=== PATIENT | male | born 1955 | race Caucasian/White ===

== ENCOUNTER 2018-08-13 08:26 | Day surgery (SDC) | payer BC, MEDICARE ==
[~2018-08-13] VITALS: Ht 177.8 cm; Wt 100.0 kg
[2018-08-13] MEDS ORDERED: SODIUM CHLORIDE 0.9% 1,000 ML IV ONE (09:18)
[2018-08-13] MEDS ORDERED: ISOS30TA8 PO (09:25)
[2018-08-13] MEDS ORDERED: ASPI-496 PO (09:25)
[2018-08-13] MEDS ORDERED: SUMA25TA3 PO (09:25)
[2018-08-13] MEDS ORDERED: OMEP40CA6 PO (09:25)
[2018-08-13] MEDS ORDERED: ONDA4TAB7 PO (09:25)
[2018-08-13] MEDS ORDERED: ATOR40TA78 PO (09:25)
[2018-08-13] MEDS ORDERED: METO25TA35 PO (09:25)
[2018-08-13 09:34] LABS: BASOPHILS # (AUTO) 0.03 x10^3/uL (0-0.1); BASOPHILS % (AUTO) 0 % (0-1); EOSINOPHILS # (AUTO) 0.03 x10^3/uL (0-0.4); EOSINOPHILS % (AUTO) 0 % (1-7); LYMPHOCYTES # (AUTO) 1.44 x10^3/uL (1-3.4); LYMPHOCYTES % (AUTO) 9 % (22-44); MD NO; MEAN CORPUSCULAR HEMOGLOBIN 30.9 pg (27.5-34.5); MEAN CORPUSCULAR HGB CONC 33.2 g/dL (33.2-36.2); MEAN PLATELET VOLUME 8.8 fL (7.4-10.4); MONOCYTES # (AUTO) 0.31 x10^3/uL (0.2-0.8); MONOCYTES % (AUTO) 2 % (2-9); NEUTROPHILS # (AUTO) 14.06 x10^3/uL (1.8-6.8); NEUTROPHILS % (AUTO) 89 % (42-75); PLATELET COUNT 294 x10^3/uL (130-400); RED BLOOD COUNT 4.86 x10^6/uL (4.38-5.82); RED CELL DISTRIBUTION WIDTH 14.4 % (9.4-14.8)
[2018-08-13 09:45] LABS: ALANINE AMINOTRANSFERASE 56 U/L (12-78); ALBUMIN 3.8 g/dL (3.4-5.0); ANION GAP 8 mmol/L (5-15); CALCIUM 10.2 mg/dL (8.5-10.1); CHLORIDE 106 mmol/L (98-107); CREATININE 1.17 mg/dL (0.7-1.3)
[2018-08-13 09:48] LABS: ALKALINE PHOSPHATASE 71 U/L (45-117); BILIRUBIN,TOTAL 0.5 mg/dL (0.2-1.0); TOTAL PROTEIN 7.3 g/dL (6.4-8.2)
[2018-08-13] MEDS ORDERED: HEPARIN 1,000 UNITS/ML, 10ML ONE (09:55)
[2018-08-13] MEDS ORDERED: MIDAZOLAM 1 MG/ML, 2ML ONE (09:55)
[2018-08-13] MEDS ORDERED: VERAPAMIL 2.5 MG/ML, 2ML ONE (09:55)
[2018-08-13] MEDS ORDERED: LIDOCAINE-MPF 1%, 5ML ONE (09:55)
[2018-08-13] MEDS ORDERED: FENTANYL PF 100 MCG/2ML ONE (09:55)
[2018-08-13] MEDS ORDERED: TICAGRELOR 90 MG TABLET ONE (10:28)
[2018-08-13] MEDS ORDERED: BIVALIRUDIN 250 MG ONE (10:29)
[2018-08-13 12:45] LABS: CHOL/HDL RATIO 2.8; LDL/HDL RATIO 1.2 (0.5-3.0)
[2018-08-13] MEDS ORDERED: SODIUM CHLORIDE 0.9% 1,000 ML IV SCH (13:48)
== END 2018-08-13 15:20 | disposition home or self-care (01) ==
LOC: CACL 08:26
PROVIDERS: ATTEND Internal Medicine Cardiovascular Disease
DX: I25.82 Chronic total occlusion of coronary artery (principal); E78.2 Mixed hyperlipidemia; F17.210 Nicotine dependence, cigarettes, uncomplicated; I20.8 Other forms of angina pectoris; Z79.82 Long term (current) use of aspirin; Z88.7 Allergy status to serum and vaccine; Z87.891 Personal history of nicotine dependence; Z72.89 Other problems related to lifestyle; Z79.899 Other long term (current) drug therapy
CPT/HCPCS: 36415; 80053; 80061; 85025; 93306; 93458; 93880; 93970; 99156; C1769; C1894; J1644; Q9967; J0583; J2250; J3010

== ENCOUNTER 2018-08-24 04:27 | Inpatient (IN) | payer BC ==
[2018-08-21 13:04] LABS: MICROSCOPIC AUTO
[2018-08-21 13:09] LABS: BASOPHILS # (AUTO) 0.05 x10^3/uL (0-0.1); BASOPHILS % (AUTO) 1 % (0-1); EOSINOPHILS # (AUTO) 0.41 x10^3/uL (0-0.4); EOSINOPHILS % (AUTO) 4 % (1-7); LYMPHOCYTES # (AUTO) 1.82 x10^3/uL (1-3.4); LYMPHOCYTES % (AUTO) 19 % (22-44); MD NO; MEAN CORPUSCULAR HEMOGLOBIN 31.9 pg (27.5-34.5); MEAN CORPUSCULAR HGB CONC 34.1 g/dL (33.2-36.2); MEAN CORPUSCULAR VOLUME 93.4 fL (81-97); MEAN PLATELET VOLUME 8.8 fL (7.4-10.4); MONOCYTES # (AUTO) 0.55 x10^3/uL (0.2-0.8); MONOCYTES % (AUTO) 6 % (2-9); NEUTROPHILS # (AUTO) 6.85 x10^3/uL (1.8-6.8); NEUTROPHILS % (AUTO) 71 % (42-75); PLATELET COUNT 303 x10^3/uL (130-400); RED BLOOD COUNT 4.93 x10^6/uL (4.38-5.82); RED CELL DISTRIBUTION WIDTH 14.4 % (9.4-14.8)
[2018-08-21 13:16] LABS: INTERNATIONAL NORMALIZED RATIO 0.96 (0.93-1.1)
[2018-08-21 13:17] LABS: ALANINE AMINOTRANSFERASE 84 U/L (12-78); ALBUMIN 3.8 g/dL (3.4-5.0); ANION GAP 6 mmol/L (5-15); CALCIUM 9.6 mg/dL (8.5-10.1); CHLORIDE 107 mmol/L (98-107); CREATININE 1.12 mg/dL (0.7-1.3)
[2018-08-21 13:19] LABS: ALKALINE PHOSPHATASE 92 U/L (45-117); BILIRUBIN,TOTAL 0.6 mg/dL (0.2-1.0); TOTAL PROTEIN 7.6 g/dL (6.4-8.2)
[~2018-08-24] VITALS: Ht 177.8 cm; Wt 101.5 kg
[~2018-08-24 04:27] MED LIST: ASPI-496 PO; ATOR40TA78 PO; ISOS30TA8 PO; METO25TA35 PO; OMEP40CA6 PO; ONDA4TAB7 PO; SUMA25TA3 PO
[2018-08-24 04:40] VITALS: BP_SYST 131; BP_SYST 134; BP_DIAS 77; BP_DIAS 81
[2018-08-24] MEDS ORDERED: INSULIN LISPRO 100 UNITS/ML, PEN SQ-INSULIN SCH (05:00)
[2018-08-24] MEDS ORDERED: CHLORHEXIDINE 15 ML UDC MM SCH (05:00)
[2018-08-24] MEDS ORDERED: METOPROLOL TARTRATE 25 MG TABLET PO ONE (05:00)
[2018-08-24] MEDS: MUPIROCIN OINT 2%, 22GM TP SCH ×2 (05:33→21:00)
[2018-08-24] MEDS: SODIUM CHLORIDE FLUSH 10ML SYR IVF SCH ×3 (05:35→21:21)
[2018-08-24] MEDS ORDERED: PAPAVERINE 30 MG/ML, 2ML ONE (06:08)
[2018-08-24] MEDS ORDERED: HEPARIN 1,000 UNITS/ML, 10ML ONE (06:09)
[2018-08-24] MEDS ORDERED: FENTANYL PF 250 MCG/5ML ONE ×5 (07:05→09:54)
[2018-08-24] MEDS ORDERED: MIDAZOLAM 10MG/2 ML ONE (07:05)
[2018-08-24] MEDS ORDERED: AMINOCAPROIC ACID 250 MG/ML, 20ML ONE ×2 (07:07→07:08)
[2018-08-24] MEDS ORDERED: ROCURONIUM 10MG/ML,5ML ONE ×2 (07:08)
[2018-08-24] MEDS ORDERED: EPINEPHRINE 1 MG/ML, 1ML ONE (07:11)
[2018-08-24] MEDS ORDERED: PHENYLEPHRINE 10 MG/ML ONE (07:11)
[2018-08-24] MEDS ORDERED: PROPOFOL 10 MG/ML, 20ML ONE (07:11)
[2018-08-24] MEDS ORDERED: REGULAR INSULIN 62.5 UNITS in SODIUM CHLORIDE 0.9% 249.375 ML IV PRN ×2 (07:30→12:12)
[2018-08-24] MEDS ORDERED: CEFUROXIME 1.5 GM in SODIUM CHLORIDE 0.9% 50 ML IVPB PRN (07:30)
[2018-08-24] MEDS ORDERED: DEXMEDETOMIDINE 200 MCG in SODIUM CHLORIDE 0.9% 48 ML IV SCH (07:30)
[2018-08-24] MEDS ORDERED: EPINEPHRINE 2 MG in SODIUM CHLORIDE 0.9% 248 ML IV SCH (07:30)
[2018-08-24] MEDS ORDERED: VANCOMYCIN 1,500 MG in SODIUM CHLORIDE 0.9% 250 ML IV PRN (07:30)
[2018-08-24] MEDS ORDERED: POTASSIUM CHLORIDE 80 MEQ, SODIUM BICARBONATE 8.4% 10 MEQ, MAGNESIUM SULFATE 0.5 GM, LI... IV PRN (07:30)
[2018-08-24] MEDS ORDERED: MANNITOL PMX 20% 500 ML IVPB PRN (07:30)
[2018-08-24] MEDS ORDERED: ALBUMIN HUMAN 5% 500 ML IV PRN (07:30)
[2018-08-24] MEDS ORDERED: PHENYLEPHRINE 10 MG in SODIUM CHLORIDE 0.9% 249 ML IV PRN ×2 (07:30→12:12)
[2018-08-24] MEDS ORDERED: PROTAMINE SULFATE 10 MG/ML, 25ML ONE (08:51)
[2018-08-24] MEDS: DOCUSATE 100 MG CAPSULE PO SCH ×2 (09:00→21:21)
[2018-08-24] MEDS ORDERED: GLYCOPYRROLATE 0.2MG/1ML, 5ML ONE (11:28)
[2018-08-24] MEDS ORDERED: CALCIUM CHLORIDE 10%, 10ML SYR ONE ×2 (11:30→12:05)
[2018-08-24] MEDS ORDERED: LIDOCAINE-MPF 2% ,5ML ONE ×2 (12:05)
[2018-08-24] MEDS ORDERED: DEXMEDETOMIDINE 200 MCG in SODIUM CHLORIDE 0.9% 48 ML IV PRN (12:12)
[2018-08-24] MEDS ORDERED: VASOPRESSIN 50 UNIT in SODIUM CHLORIDE 0.9% 247.5 ML IV PRN (12:12)
[2018-08-24] MEDS ORDERED: NITROGLYCERIN/D5W PMX 250 ML IV PRN (12:12)
[2018-08-24] MEDS ORDERED: DOBUTAMINE 250 MG in SODIUM CHLORIDE 0.9% 230 ML IV PRN (12:12)
[2018-08-24] MEDS ORDERED: SODIUM CHLORIDE 0.9% 1,000 ML IV PRN (12:12)
[2018-08-24] MEDS ORDERED: methylPREDNISolone SOD SUCC 125 MG/2 ML ONE (12:20)
[2018-08-24] MEDS ORDERED: SODIUM BICARB 8.4%, 50ML SYRINGE ONE (12:20)
[2018-08-24] MEDS ORDERED: LIDOCAINE 2% 100MG/5ML SYRINGE ONE (12:20)
[2018-08-24] MEDS ORDERED: ALBUMIN HUMAN 25% 50 ML ONE (12:20)
[2018-08-24] MEDS ORDERED: HEPARIN 1,000 UNITS/ML, 30ML ONE (12:20)
[2018-08-24] MEDS ORDERED: SODIUM BICARB 8.4%, 50ML SYRINGE IV PRN (12:30)
[2018-08-24] MEDS ORDERED: GLUCAGON 1 MG IM PRN (12:30)
[2018-08-24] MEDS ORDERED: EPINEPHRINE 2 MG in SODIUM CHLORIDE 0.9% 248 ML IV PRN (12:30)
[2018-08-24] MEDS ORDERED: DEXTROSE 4 GM TAB.CHEW PO PRN (12:30)
[2018-08-24] MEDS ORDERED: DEXTROSE 50%, 50ML SYRINGE IVPush PRN (12:30)
[2018-08-24] MEDS ORDERED: ACETAMINOPHEN 325 MG TABLET PO PRN (12:30)
[2018-08-24] MEDS ORDERED: ACETAMINOPHEN 650 MG SUPP PR PRN (12:30)
[2018-08-24] MEDS ORDERED: INSULIN REGULAR 100 UNITS/ML, 3ML VIAL IVPush PRN (12:30)
[2018-08-24] MEDS ORDERED: BISACODYL 5 MG EC TABLET PO PRN (12:30)
[2018-08-24] MEDS ORDERED: ONDANSETRON 2MG/ML, 2ML IVPush PRN (12:30)
[2018-08-24] MEDS ORDERED: AMIODARONE 900 MG in DEXTROSE 5% 482 ML IV PRN (12:30)
[2018-08-24] MEDS ORDERED: LACTATED RINGERS 1,000 ML IV PRN (12:30)
[2018-08-24] MEDS ORDERED: PROCHLORPERAZINE 5 MG/ML, 2ML IVPush PRN (12:30)
[2018-08-24] MEDS ORDERED: BISACODYL 10 MG SUPP PR PRN (12:30)
[2018-08-24] MEDS ORDERED: MIDAZOLAM 1 MG/ML, 5ML IVPush PRN (12:30)
[2018-08-24 12:55] LABS: GLUCOSE BY BLOOD GAS ANALYZER 171 mg/dL (70-110); HEMOGLOBIN BY BLOOD GAS ANALYZ 13.7 g/dL (14.0-18.0); POTASSIUM BY BLOOD GAS ANALYZR 3.7 mmol/L (3.6-5.5)
[2018-08-24] MEDS: MAGNESIUM SULFATE 1 GM in SODIUM CHLORIDE 0.9% 50 ML IVPB SCH (13:09)
[2018-08-24 13:12] LABS: INTERNATIONAL NORMALIZED RATIO 1.18 (0.93-1.1); PROTHROMBIN TIME 12.4 Seconds (9.6-11.5)
[2018-08-24] MEDS: KSCALE TO 4.5 IV SCH ×2 (13:42→18:30)
[2018-08-24] MEDS ORDERED: POTASSIUM CHLORIDE PMX 100 ML IV ONE (14:00)
[2018-08-24] MEDS: morphine SULFATE 10 MG/ML, 1ML IVPush PRN (14:47)
[2018-08-24] MEDS ORDERED: FILTER 0.22 MICRON IV PRN (15:00)
[2018-08-24] MEDS ORDERED: CALCIUM CHLORIDE 13.6 MEQ in SODIUM CHLORIDE 0.9% 100 ML IV ONE (15:30)
[2018-08-24] MEDS ORDERED: CALCIUM CHLORIDE 10%, 10ML SYR IVPush ONE (15:30)
[2018-08-24] MEDS: INSULIN LISPRO 100 UNITS/ML, PEN SQ-INSULIN SCH ×2 (16:00→21:00)
[2018-08-24] MEDS: VANCOMYCIN 1,500 MG in SODIUM CHLORIDE 0.9% 250 ML IVPB SCH (19:12)
[2018-08-24] MEDS: CHLORHEXIDINE 15 ML UDC PO SCH (21:21)
[2018-08-24] MEDS: MUPIROCIN OINT 2%, 22GM NAS SCH (21:21)
[2018-08-25] MEDS ORDERED: PANTOPRAZOLE 40 MG IV ONE (00:18)
[2018-08-25] MEDS ORDERED: CALCIUM CARBONATE 500 MG TAB.CHEW ONE (00:18)
[2018-08-25] MEDS ORDERED: PANTOPRAZOLE 40 MG IV IVPush SCH (00:30)
[2018-08-25] MEDS: KSCALE TO 4.5 IV SCH ×2 (00:30→06:30)
[2018-08-25] MEDS: CALCIUM CARBONATE 500 MG TAB.CHEW PO PRN ×4 (01:21→21:20)
[2018-08-25] MEDS: HYDROcodone/APAP 5/325 TABLET PO PRN ×3 (03:48→21:20)
[2018-08-25 04:36] LABS: BASOPHILS # (AUTO) 0.05 x10^3/uL (0-0.1); BASOPHILS % (AUTO) 0 % (0-1); EOSINOPHILS % (AUTO) 0 % (1-7); LYMPHOCYTES % (AUTO) 7 % (22-44); MD NO; MEAN CORPUSCULAR HEMOGLOBIN 31.9 pg (27.5-34.5); MEAN CORPUSCULAR HGB CONC 34.2 g/dL (33.2-36.2); MEAN CORPUSCULAR VOLUME 93.5 fL (81-97); MEAN PLATELET VOLUME 8.4 fL (7.4-10.4); MONOCYTES # (AUTO) 0.64 x10^3/uL (0.2-0.8); MONOCYTES % (AUTO) 5 % (2-9); NEUTROPHILS # (AUTO) 12.37 x10^3/uL (1.8-6.8); NEUTROPHILS % (AUTO) 88 % (42-75); PLATELET COUNT 200 x10^3/uL (130-400); RED BLOOD COUNT 3.61 x10^6/uL (4.38-5.82); RED CELL DISTRIBUTION WIDTH 13.9 % (9.4-14.8)
[2018-08-25 04:43] LABS: ANION GAP 6 mmol/L (5-15); CALCIUM 8.4 mg/dL (8.5-10.1); CHLORIDE 110 mmol/L (98-107); CREATININE 1.12 mg/dL (0.7-1.3)
[2018-08-25] MEDS: OXYcodone IR 5MG TABLET PO PRN ×5 (05:03→19:17)
[2018-08-25] MEDS ORDERED: MORPHINE SULFATE 4 MG/ML, 1ML ONE (06:13)
[2018-08-25] MEDS: morphine SULFATE 10 MG/ML, 1ML IVPush PRN (06:46)
[2018-08-25] MEDS: INSULIN LISPRO 100 UNITS/ML, PEN SQ-INSULIN SCH ×4 (07:00→21:00)
[2018-08-25] MEDS: VANCOMYCIN 1,500 MG in SODIUM CHLORIDE 0.9% 250 ML IVPB SCH (07:57)
[2018-08-25] MEDS: TAMSULOSIN 0.4 MG CAP.ER.24H PO SCH (07:58)
[2018-08-25] MEDS: ASPIRIN 81 MG TABLET EC PO SCH (07:58)
[2018-08-25] MEDS: SODIUM CHLORIDE FLUSH 10ML SYR IVF SCH ×5 (07:58→21:00)
[2018-08-25] MEDS: DOCUSATE 100 MG CAPSULE PO SCH ×2 (07:58→21:21)
[2018-08-25] MEDS: MUPIROCIN OINT 2%, 22GM NAS SCH ×2 (07:58→21:00)
[2018-08-25] MEDS: MUPIROCIN OINT 2%, 22GM TP SCH ×2 (07:59→21:00)
[2018-08-25] MEDS: METOPROLOL TARTRATE 25 MG TABLET PO/NG SCH ×2 (07:59→21:21)
[2018-08-25] MEDS: CHLORHEXIDINE 15 ML UDC PO SCH ×2 (08:02→21:20)
[2018-08-25] MEDS ORDERED: MAGNESIUM HYDROXIDE 8%, 30ML UDC PO PRN (08:30)
[2018-08-25] MEDS ORDERED: TEMPLATE NON-FORMULARY MED. (Omeprazole** 40 MG) PO SCH (09:00)
[2018-08-25] MEDS ORDERED: SUMATRIPTAN 25 MG TABLET PO PRN (09:30)
[2018-08-25] MEDS: FUROSEMIDE 20 MG/2 ML IV SCH ×2 (09:34→21:00)
[2018-08-25] MEDS: AMIODARONE 200 MG TABLET PO SCH (09:34)
[2018-08-25 14:37] VITALS: BP 112/64
[2018-08-25] MEDS: MAGNESIUM SULFATE 1 GM in SODIUM CHLORIDE 0.9% 50 ML IVPB SCH (16:07)
[2018-08-25] MEDS: PANTOPROZOLE 40MG TABLET PO SCH (16:19)
[2018-08-25 21:02] VITALS: BP 132/76
[2018-08-25] MEDS: ATORVASTATIN 40 MG TABLET PO SCH (21:20)
[2018-08-26 01:34] VITALS: BP 107/69
[2018-08-26] MEDS: OXYcodone IR 5MG TABLET PO PRN ×4 (04:34→17:10)
[2018-08-26 04:51] LABS: BASOPHILS # (AUTO) 0.03 x10^3/uL (0-0.1); BASOPHILS % (AUTO) 0 % (0-1); EOSINOPHILS # (AUTO) 0.02 x10^3/uL (0-0.4); EOSINOPHILS % (AUTO) 0 % (1-7); LYMPHOCYTES # (AUTO) 0.89 x10^3/uL (1-3.4); LYMPHOCYTES % (AUTO) 7 % (22-44); MD NO; MEAN CORPUSCULAR HEMOGLOBIN 31.9 pg (27.5-34.5); MEAN CORPUSCULAR HGB CONC 34.1 g/dL (33.2-36.2); MEAN CORPUSCULAR VOLUME 93.5 fL (81-97); MEAN PLATELET VOLUME 8.8 fL (7.4-10.4); MONOCYTES # (AUTO) 0.69 x10^3/uL (0.2-0.8); MONOCYTES % (AUTO) 5 % (2-9); NEUTROPHILS # (AUTO) 11.97 x10^3/uL (1.8-6.8); NEUTROPHILS % (AUTO) 88 % (42-75); PLATELET COUNT 195 x10^3/uL (130-400); RED BLOOD COUNT 3.82 x10^6/uL (4.38-5.82); RED CELL DISTRIBUTION WIDTH 13.9 % (9.4-14.8)
[2018-08-26 04:58] LABS: ANION GAP 7 mmol/L (5-15); CALCIUM 8.3 mg/dL (8.5-10.1); CHLORIDE 104 mmol/L (98-107)
[2018-08-26 05:01] LABS: CREATININE 1.19 mg/dL (0.7-1.3)
[2018-08-26] MEDS: INSULIN LISPRO 100 UNITS/ML, PEN SQ-INSULIN SCH ×4 (07:00→21:00)
[2018-08-26 07:21] VITALS: BP 117/69
[2018-08-26] MEDS: AMIODARONE 200 MG TABLET PO SCH (08:05)
[2018-08-26] MEDS: PANTOPROZOLE 40MG TABLET PO SCH ×2 (08:05→17:08)
[2018-08-26] MEDS: FUROSEMIDE 20 MG/2 ML IV SCH ×2 (08:05→21:28)
[2018-08-26] MEDS: TAMSULOSIN 0.4 MG CAP.ER.24H PO SCH (08:05)
[2018-08-26] MEDS: HYDROcodone/APAP 5/325 TABLET PO PRN (08:05)
[2018-08-26] MEDS: ASPIRIN 81 MG TABLET EC PO SCH (08:05)
[2018-08-26] MEDS: DOCUSATE 100 MG CAPSULE PO SCH ×2 (08:05→21:33)
[2018-08-26] MEDS: CHLORHEXIDINE 15 ML UDC PO SCH (08:06)
[2018-08-26] MEDS: SODIUM CHLORIDE FLUSH 10ML SYR IVF SCH ×6 (08:07→21:00)
[2018-08-26] MEDS: METOPROLOL TARTRATE 25 MG TABLET PO/NG SCH ×2 (08:15→21:32)
[2018-08-26] MEDS: MUPIROCIN OINT 2%, 22GM NAS SCH ×2 (09:00→21:00)
[2018-08-26] MEDS: MUPIROCIN OINT 2%, 22GM TP SCH ×3 (09:24→21:32)
[2018-08-26 09:56] LABS: CULTURE INDICATED? NO; MICROSCOPIC AUTO
[2018-08-26] MEDS: ENOXAPARIN 40 MG/0.4 ML SQ SCH (11:54)
[2018-08-26] MEDS: MAGNESIUM SULFATE 1 GM in SODIUM CHLORIDE 0.9% 50 ML IVPB SCH (13:20)
[2018-08-26 14:21] VITALS: BP 102/68
[2018-08-26 19:09] VITALS: BP 115/72
[2018-08-26] MEDS: ATORVASTATIN 40 MG TABLET PO SCH (21:32)
[2018-08-27 00:56] VITALS: BP 100/64
[2018-08-27] MEDS ORDERED: FUROSEMIDE 20 MG/2 ML IV SCH (05:00)
[2018-08-27 05:13] VITALS: BP 108/66
[2018-08-27] MEDS: OXYcodone IR 5MG TABLET PO PRN ×3 (05:16→15:51)
[2018-08-27 05:31] LABS: ANION GAP 6 mmol/L (5-15); CALCIUM 7.4 mg/dL (8.5-10.1); CHLORIDE 102 mmol/L (98-107); CREATININE 1.02 mg/dL (0.7-1.3)
[2018-08-27 05:33] LABS: BASOPHILS # (AUTO) 0.06 x10^3/uL (0-0.1); BASOPHILS % (AUTO) 1 % (0-1); EOSINOPHILS # (AUTO) 0.07 x10^3/uL (0-0.4); EOSINOPHILS % (AUTO) 1 % (1-7); LYMPHOCYTES # (AUTO) 0.86 x10^3/uL (1-3.4); LYMPHOCYTES % (AUTO) 9 % (22-44); MD NO; MEAN CORPUSCULAR HEMOGLOBIN 31.7 pg (27.5-34.5); MEAN CORPUSCULAR HGB CONC 34.2 g/dL (33.2-36.2); MEAN CORPUSCULAR VOLUME 92.7 fL (81-97); MEAN PLATELET VOLUME 8.8 fL (7.4-10.4); MONOCYTES % (AUTO) 5 % (2-9); NEUTROPHILS # (AUTO) 8.65 x10^3/uL (1.8-6.8); NEUTROPHILS % (AUTO) 85 % (42-75); PLATELET COUNT 175 x10^3/uL (130-400); RED BLOOD COUNT 3.41 x10^6/uL (4.38-5.82); RED CELL DISTRIBUTION WIDTH 13.7 % (9.4-14.8)
[2018-08-27] MEDS: INSULIN LISPRO 100 UNITS/ML, PEN SQ-INSULIN SCH ×4 (07:00→21:00)
[2018-08-27 07:33] VITALS: BP 96/62
[2018-08-27] MEDS: PANTOPROZOLE 40MG TABLET PO SCH ×2 (08:24→15:51)
[2018-08-27] MEDS: DOCUSATE 100 MG CAPSULE PO SCH ×2 (08:24→20:59)
[2018-08-27] MEDS: AMIODARONE 200 MG TABLET PO SCH (08:25)
[2018-08-27] MEDS: CLOPIDOGREL 75 MG TABLET PO SCH (08:25)
[2018-08-27] MEDS: TAMSULOSIN 0.4 MG CAP.ER.24H PO SCH (08:25)
[2018-08-27] MEDS: METOPROLOL TARTRATE 25 MG TABLET PO/NG SCH ×2 (08:25→21:06)
[2018-08-27] MEDS: ASPIRIN 81 MG TABLET EC PO SCH (08:25)
[2018-08-27] MEDS: MUPIROCIN OINT 2%, 22GM TP SCH ×2 (08:26→20:58)
[2018-08-27] MEDS: SODIUM CHLORIDE FLUSH 10ML SYR IVF SCH ×6 (08:26→20:57)
[2018-08-27] MEDS: MUPIROCIN OINT 2%, 22GM NAS SCH ×2 (08:26→20:59)
[2018-08-27] MEDS ORDERED: CALCIUM CHLORIDE 13.6 MEQ in SODIUM CHLORIDE 0.9% 100 ML IV ONE (10:00)
[2018-08-27] MEDS ORDERED: ALBUTEROL SULFATE 2.5 MG/3 ML NPPB PRN (10:30)
[2018-08-27] MEDS: ENOXAPARIN 40 MG/0.4 ML SQ SCH (10:44)
[2018-08-27 14:12] VITALS: BP 115/55
[2018-08-27] MEDS: FUROSEMIDE 40 MG/4 ML IV SCH (15:52)
[2018-08-27 19:48] VITALS: BP 107/68
[2018-08-27] MEDS: ATORVASTATIN 40 MG TABLET PO SCH (20:59)
[2018-08-27 21:04] VITALS: BP 104/63
[2018-08-28 04:19] VITALS: BP 101/64
[2018-08-28] MEDS: OXYcodone IR 5MG TABLET PO PRN ×3 (04:26→16:30)
[2018-08-28] MEDS: FUROSEMIDE 40 MG/4 ML IV SCH ×2 (04:34→16:40)
[2018-08-28 05:03] LABS: ANION GAP 9 mmol/L (5-15); CALCIUM 7.9 mg/dL (8.5-10.1); CHLORIDE 102 mmol/L (98-107)
[2018-08-28 05:04] LABS: CREATININE 0.95 mg/dL (0.7-1.3)
[2018-08-28 05:43] LABS: MD YES; MEAN CORPUSCULAR HEMOGLOBIN 31.8 pg (27.5-34.5); MEAN CORPUSCULAR HGB CONC 34.3 g/dL (33.2-36.2); MEAN CORPUSCULAR VOLUME 92.7 fL (81-97); MEAN PLATELET VOLUME 9.1 fL (7.4-10.4); PLATELET COUNT 193 x10^3/uL (130-400); RED BLOOD COUNT 3.26 x10^6/uL (4.38-5.82); RED CELL DISTRIBUTION WIDTH 14.1 % (9.4-14.8)
[2018-08-28 05:44] LABS: EOS#(MANUAL) 0.59 x10^3/uL (0.0-0.4); EOS% (MANUAL) 6 % (1-7); LYMPH#(MANUAL) 1.39 x10^3/uL (1-3.4); LYMPHS% (MANUAL) 14 % (22-44); MONOS% (MANUAL) 5 % (2-9); SEG#(MANUAL) 7.43 x10^3/uL (1.8-6.8); SEGS% (MANUAL) 75 % (42-75)
[2018-08-28 05:45] LABS: <PLATELET ESTIMATE> ADEQUATE; LARGE PLATELETS 1+; POLYCHROMASIA 1+
[2018-08-28 06:45] VITALS: BP 108/64
[2018-08-28] MEDS: INSULIN LISPRO 100 UNITS/ML, PEN SQ-INSULIN SCH ×4 (07:00→21:15)
[2018-08-28] MEDS ORDERED: POTASSIUM CHLORIDE 20 MEQ TAB.ER.PRT PO ONE (08:30)
[2018-08-28] MEDS: SODIUM CHLORIDE FLUSH 10ML SYR IVF SCH ×6 (08:31→21:13)
[2018-08-28] MEDS: MUPIROCIN OINT 2%, 22GM NAS SCH ×2 (08:32→21:00)
[2018-08-28] MEDS: DOCUSATE 100 MG CAPSULE PO SCH ×2 (08:40→21:15)
[2018-08-28] MEDS: ASPIRIN 81 MG TABLET EC PO SCH (08:40)
[2018-08-28] MEDS: PANTOPROZOLE 40MG TABLET PO SCH ×2 (08:40→16:30)
[2018-08-28] MEDS: GUAIFENESIN ER 600 MG TABLET PO SCH ×2 (08:42→21:15)
[2018-08-28] MEDS: AMIODARONE 200 MG TABLET PO SCH (08:42)
[2018-08-28] MEDS: TAMSULOSIN 0.4 MG CAP.ER.24H PO SCH (08:42)
[2018-08-28] MEDS: CLOPIDOGREL 75 MG TABLET PO SCH (08:42)
[2018-08-28] MEDS: METOPROLOL TARTRATE 25 MG TABLET PO/NG SCH ×2 (08:42→21:18)
[2018-08-28] MEDS: ENOXAPARIN 40 MG/0.4 ML SQ SCH (11:10)
[2018-08-28 13:28] VITALS: BP 108/74
[2018-08-28] MEDS: POTASSIUM CHLORIDE 20 MEQ TAB.ER.PRT PO SCH (16:30)
[2018-08-28 21:02] VITALS: BP 99/61
[2018-08-28] MEDS: ATORVASTATIN 40 MG TABLET PO SCH (21:15)
[2018-08-28 21:17] VITALS: BP 102/64
[2018-08-29 01:45] VITALS: BP 100/61
[2018-08-29 05:18] VITALS: BP 106/68
[2018-08-29] MEDS: FUROSEMIDE 40 MG/4 ML IV SCH (05:20)
[2018-08-29 05:35] LABS: ANION GAP 5 mmol/L (5-15); CALCIUM 7.8 mg/dL (8.5-10.1); CHLORIDE 101 mmol/L (98-107)
[2018-08-29 05:36] LABS: CREATININE 1.12 mg/dL (0.7-1.3)
[2018-08-29 05:49] LABS: BASOPHILS # (AUTO) 0.04 x10^3/uL (0-0.1); BASOPHILS % (AUTO) 1 % (0-1); EOSINOPHILS # (AUTO) 0.36 x10^3/uL (0-0.4); EOSINOPHILS % (AUTO) 5 % (1-7); LYMPHOCYTES # (AUTO) 1.03 x10^3/uL (1-3.4); LYMPHOCYTES % (AUTO) 13 % (22-44); MD NO; MEAN CORPUSCULAR HEMOGLOBIN 31.1 pg (27.5-34.5); MEAN CORPUSCULAR HGB CONC 33.8 g/dL (33.2-36.2); MEAN CORPUSCULAR VOLUME 91.8 fL (81-97); MEAN PLATELET VOLUME 8.3 fL (7.4-10.4); MONOCYTES # (AUTO) 0.58 x10^3/uL (0.2-0.8); MONOCYTES % (AUTO) 7 % (2-9); NEUTROPHILS % (AUTO) 75 % (42-75); PLATELET COUNT 288 x10^3/uL (130-400); RED BLOOD COUNT 3.48 x10^6/uL (4.38-5.82); RED CELL DISTRIBUTION WIDTH 13.8 % (9.4-14.8)
[2018-08-29] MEDS: INSULIN LISPRO 100 UNITS/ML, PEN SQ-INSULIN SCH ×2 (07:00→11:00)
[2018-08-29 07:38] VITALS: BP 111/73
[2018-08-29] MEDS: PANTOPROZOLE 40MG TABLET PO SCH (07:40)
[2018-08-29] MEDS: POTASSIUM CHLORIDE 20 MEQ TAB.ER.PRT PO SCH (08:00)
[2018-08-29] MEDS ORDERED: POTASSIUM CHLORIDE 20 MEQ TAB.ER.PRT PO ONE (08:00)
[2018-08-29] MEDS ORDERED: GUAI600T31 PO (08:03)
[2018-08-29] MEDS ORDERED: AMIO200T42 PO (08:03)
[2018-08-29] MEDS ORDERED: POTA20TA6 PO (08:03)
[2018-08-29] MEDS ORDERED: DOCU-131 PO (08:03)
[2018-08-29] MEDS ORDERED: TAMS-11 PO (08:03)
[2018-08-29] MEDS ORDERED: METO25TA35 PO/NG (08:03)
[2018-08-29] MEDS ORDERED: CLOP75TA PO (08:03)
[2018-08-29] MEDS ORDERED: FURO40TA6 PO (08:03)
[2018-08-29] MEDS: DOCUSATE 100 MG CAPSULE PO SCH (09:00)
[2018-08-29] MEDS: SODIUM CHLORIDE FLUSH 10ML SYR IVF SCH ×3 (09:00→10:26)
[2018-08-29] MEDS: GUAIFENESIN ER 600 MG TABLET PO SCH (10:02)
[2018-08-29] MEDS: ASPIRIN 81 MG TABLET EC PO SCH (10:02)
[2018-08-29] MEDS: TAMSULOSIN 0.4 MG CAP.ER.24H PO SCH (10:02)
[2018-08-29] MEDS: AMIODARONE 200 MG TABLET PO SCH (10:02)
[2018-08-29] MEDS: CLOPIDOGREL 75 MG TABLET PO SCH (10:02)
[2018-08-29] MEDS: METOPROLOL TARTRATE 25 MG TABLET PO/NG SCH (10:04)
[2018-08-29] MEDS: MUPIROCIN OINT 2%, 22GM NAS SCH (10:05)
[2018-08-29] MEDS: ENOXAPARIN 40 MG/0.4 ML SQ SCH (11:25)
== END 2018-08-29 14:17 | disposition home health service (06) | DRG 235 ==
LOC: 5SO 04:27 → CSU 11:48 → 5SO 08-25 14:18
PROVIDERS: ADMIT Thoracic Surgery (Cardiothoracic Vascular Surgery); ATTEND Thoracic Surgery (Cardiothoracic Vascular Surgery)
PROC: 021109W Bypass Coronary Artery, Two Arteries from Aorta with Autologous Venous Tissue, Open Approach (ICD-10-PCS; 2018-08-24)
PROC: 06BP4ZZ Excision of Right Saphenous Vein, Percutaneous Endoscopic Approach (ICD-10-PCS; 2018-08-24)
PROC: 5A1221Z Performance of Cardiac Output, Continuous (ICD-10-PCS; 2018-08-24)
PROC: B246ZZ4 Ultrasonography of Right and Left Heart, Transesophageal (ICD-10-PCS; 2018-08-24)
PROC: 02100Z9 Bypass Coronary Artery, One Artery from Left Internal Mammary, Open Approach (ICD-10-PCS; principal; 2018-08-24 07:30)
PROC: 02HV33Z Insertion of Infusion Device into Superior Vena Cava, Percutaneous Approach (ICD-10-PCS; 2018-08-26)
PROC: 0T9B70Z Drainage of Bladder with Drainage Device, Via Natural or Artificial Opening (ICD-10-PCS; 2018-08-26)
DX: I25.119 Atherosclerotic heart disease of native coronary artery with unspecified angina pectoris (principal); I50.31 Acute diastolic (congestive) heart failure; J98.11 Atelectasis; E78.00 Pure hypercholesterolemia, unspecified; E78.5 Hyperlipidemia, unspecified; F17.210 Nicotine dependence, cigarettes, uncomplicated; G89.18 Other acute postprocedural pain; J44.9 Chronic obstructive pulmonary disease, unspecified; R73.03 Prediabetes; I11.0 Hypertensive heart disease with heart failure; K21.9 Gastro-esophageal reflux disease without esophagitis; M10.9 Gout, unspecified; E66.9 Obesity, unspecified; Z68.32 Body mass index [BMI] 32.0-32.9, adult
CPT/HCPCS: 36415; 36600; J3490; S0017; 71045; 71046; 80048; 80053; 81001; 82040; 82330; 82800; 82803; 82810; 82947; 82962; 83036; 83735; 84132; 84295; 85014; 85018; 85025; 85049; 85347; 85610; 85730; 86850; 86900; 86923; 87081; 93005; 93312; 93321; 93325; 94002; 94150; G0378; J0171; J0697; J1644; J1650; J1815; J1940; J2250; J2405; J2704; J2720; J3010; J3370; J3475; J3480; P9045; P9047; C1751; C1760; C9113; J0282; J2270; J2370; J2440; J2930; J7050; J7060; J7120